=== PATIENT | male | born 1955 | race African-American/Black ===

== ENCOUNTER 2022-12-16 15:23 | Emergency (ER) | payer MEDICARE, OTHER ==
[~2022-12-16] VITALS: Ht 180.3 cm; Wt 121.5 kg
[2022-12-16 15:51] VITALS: BP 114/74; PULSE 77; RESP 16; TEMP 98.5; O2SAT 98
[2022-12-16 17:26] LABS: BASOPHILS % 0.5 % (0.0-2.0); DIFFERENTIAL COMMENT 0; EOSINOPHILS % 2.6 % (0.0-5.0); HEMATOCRIT. 42.9 % (42.0-52.0); HEMOGLOBIN. 14.3 g/dL (14.0-18.0); LYMPHOCYTES % 15.5 % (20.0-50.0); MEAN CORPUSCULAR HEMOGLOBIN 25.9 pg (28.0-32.0); MEAN CORPUSCULAR HGB CONC 33.2 g/dL (31.0-37.0); MEAN CORPUSCULAR VOLUME 77.8 fL (80.0-94.0); MEAN PLATELET VOLUME 7.8 fl (7.4-10.4); MONOCYTES % 8.3 % (2.0-8.0); NEUTROPHILS % 73.1 % (40.0-76.0); PLATELET 290 x1000/uL (130-400); RED BLOOD CELL COUNT 5.52 mill/uL (4.7-6.1); RED CELL DISTRIBUTION WIDTH 16.7 % (11.6-14.6); WHITE BLOOD COUNT 6.4 x1000/uL (4.5-11.0)
[2022-12-16 17:34] LABS: CHLORIDE 104 mEq/L (98-107); INDEX HEMOLYSI 1 (1-3); INDEX ICTERIC 1 (1-4); INDEX LIPEMIC 1 (1-3); SODIUM 140 mEq/L (136-145)
[2022-12-16 17:37] LABS: PROTHROMBIN TIME 11.1 sec (9.6-11.0)
[2022-12-16 17:43] LABS: ALANINE AMINOTRANSFERASE 15 IU/L (13-61); ALBUMIN 3.6 g/dL (3.4-5.0); ASPARTATE AMINOTRANSFERASE 12 IU/L (15-37); BILIRUBIN TOTAL 0.5 mg/dL (0.1-1.0); CALCIUM 9.1 mg/dL (8.5-10.1); CARBON DIOXIDE 30 mEq/L (21-32); CREATININE 1.5 mg/dL (0.6-1.3); GLUCOSE 101 mg/dL (70-105); PROTEIN TOTAL 7.2 g/dL (6.0-8.3); TROPONIN I HIGH SENSITIVITY 12 ng/L (<78); UREA NITROGEN BLOOD 24 mg/dL (7-21)
[2022-12-16] MEDS ORDERED: MECLIZINE 25MG TABLET PO ONE (17:45)
[2022-12-16] MEDS ORDERED: SODIUM CHLORIDE 0.9% 1,000 ML IV ONE (19:15)
[2022-12-16] MEDS ORDERED: POTASSIUM CHLORIDE 20MEQ TABLET SR PO NR (19:15)
[2022-12-16] MEDS ORDERED: POTASSIUM CHLORIDE 20MEQ TABLET SR PO ONE (19:15)
[2022-12-16] MEDS ORDERED: POTA10CA43 MT (20:48)
== END 2022-12-17 00:27 | disposition home or self-care (01) ==
LOC: ER 15:23
DX: N17.9 Acute kidney failure, unspecified (principal); R42 Dizziness and giddiness; E87.6 Hypokalemia; I10 Essential (primary) hypertension
CPT/HCPCS: 80053; 83880; 85025; 85610; 84484; 36415; 71045; 70450; 93005; 96360; 99285; J8597; J7030; Z7610

== ENCOUNTER 2024-02-22 17:31 | Emergency (ER) | payer MEDICARE, MEDICAID ==
[~2024-02-22] VITALS: Ht 180.3 cm; Wt 120.0 kg
[~2024-02-22 17:31] MED LIST: POTA10CA93 MT
[2024-02-22 17:35] VITALS: O2SAT 100
[2024-02-22 18:06] LABS: BASOPHILS % 0.6 % (0.0-2.0); HEMOGLOBIN. 15.8 g/dL (14.0-18.0); LYMPHOCYTES % 14.1 % (20.0-50.0); MEAN CORPUSCULAR HEMOGLOBIN 26.2 pg (28.0-32.0); MEAN CORPUSCULAR HGB CONC 32.3 g/dL (31.0-37.0); MEAN CORPUSCULAR VOLUME 81.2 fL (80.0-94.0); MEAN PLATELET VOLUME 7.9 fl (7.4-10.4); MONOCYTES % 6.2 % (2.0-8.0); NEUTROPHILS % 76.1 % (40.0-76.0); PLATELET 287 x1000/uL (130-400); RED BLOOD CELL COUNT 6.04 mill/uL (4.7-6.1); RED CELL DISTRIBUTION WIDTH 16.4 % (11.6-14.6); WHITE BLOOD COUNT 6.2 x1000/uL (4.5-11.0)
[2024-02-22 18:13] LABS: POTASSIUM 3.3 mEq/L (3.5-5.1)
[2024-02-22 18:14] LABS: CALCIUM 9.9 mg/dL (8.7-10.4)
[2024-02-22 18:19] LABS: CREATININE 1.6 mg/dL (0.6-1.3)
[2024-02-22 20:26] LABS: TROPONIN I HIGH SENSITIVITY 8 ng/L (3.0-53)
[2024-02-22 21:46] VITALS: BP 154/88; PULSE 76; RESP 16; TEMP 36.94740; O2SAT 100
== END 2024-02-22 22:12 | disposition home or self-care (01) ==
LOC: ER 17:31
DX: R42 Dizziness and giddiness (principal); I10 Essential (primary) hypertension; E78.00 Pure hypercholesterolemia, unspecified; Z86.73 Personal history of transient ischemic attack (TIA), and cerebral infarction without residual deficits
CPT/HCPCS: 80048; 85025; 84484; 36415; 93005; 99285; Z7610

== ENCOUNTER 2024-08-28 10:30 | Emergency (ER) | payer MEDICARE, MEDICAID ==
[~2024-08-28] VITALS: Ht 180.3 cm; Wt 124.0 kg
[2024-08-28 10:34] VITALS: O2SAT 98
[2024-08-28 10:40] VITALS: BP 148/102; PULSE 68; RESP 20; TEMP 36.8; O2SAT 9
[2024-08-28] MEDS ORDERED: COLCHICINE 0.6MG TABLET PO ONE (12:15)
[2024-08-28] MEDS: COLCHICINE 0.6MG TABLET PO ONE (12:33)
[2024-08-28] MEDS ORDERED: COLC0.6C3 MT (13:22)
[2024-08-28] MEDS: COLCHICINE 0.6MG TABLET PO NR (13:56)
== END 2024-08-28 14:23 | disposition home or self-care (01) ==
LOC: ER 10:30
DX: M10.9 Gout, unspecified (principal); I10 Essential (primary) hypertension; M19.90 Unspecified osteoarthritis, unspecified site
CPT/HCPCS: 73630; 99283